=== PATIENT | male | born 1980 | race Caucasian/White ===

== ENCOUNTER 2023-09-09 16:30 | Emergency (ER) | payer OTHER ==
[~2023-09-09] VITALS: Ht 185.4 cm; Wt 98.9 kg
[2023-09-09] MEDS ORDERED: PREDNISONE20 M1 PO (16:55)
[2023-09-09] MEDS ORDERED: CLINDAMYCIN HC300 MG PO (16:55)
== END 2023-09-09 17:08 | disposition home or self-care (01) ==
LOC: ED 16:30
DX: L03.115 Cellulitis of right lower limb (principal)